=== PATIENT | female | born 2000 | race African-American/Black ===

== ENCOUNTER 2022-09-10 11:45 | Emergency (ER) | payer MEDICAID ==
[~2022-09-10] VITALS: Ht 160 cm; Wt 63.6 kg
[2022-09-10 12:40] VITALS: BP 101/67; PULSE 61; TEMP 98.2
== END 2022-09-10 12:40 | disposition home or self-care (01) ==
LOC: COL.ER 11:45
DX: S09.90XA Unspecified injury of head, initial encounter (principal); S01.01XA Laceration without foreign body of scalp, initial encounter; Z28.310 Unvaccinated for COVID-19; W22.8XXA Striking against or struck by other objects, initial encounter